=== PATIENT | male | born 1965 | race Caucasian/White ===

== ENCOUNTER 2020-11-19 05:40 | Day surgery (SDC) | payer OTHER ==
[~2020-11-19] VITALS: Ht 180.3 cm; Wt 109.1 kg
[~2020-11-19 05:40] MED LIST: CYCLOBENZAPRINE10 MG PO; FLOMAX0.4 MG PO; LIDO KING1 EACH; LIPITOR10 MG PO; METOPROLOL SUCC50 MG PO; MINIPRESS2 MG PO; NUPERCAINAL56.7 GM PR; PRINIVIL20 MG PO; PROAIR HFA8.5 GM INH; PROMETHAZINE HC25 M1 PO; QVAR REDIHALE10.6 G1 INH; TERBINAFINE HC250 MG PO; VENLAFAXINE HC150 M1 PO
--- NOTE | 2020-11-19 08:39 | NUR ---
PT ALERT, ORIENTED AND SOMEWHAT ANXIOUS. PT C/O SEVERE PAIN IN LOWER BACK HE FEELS IS DUE TO LAYING ON HIS BACK. DR COREAS IN, CHECKED WITH PT AND STATED SHE WILL HAVE ALAINA ABEBE LOOK IN ON HIM. PT REQUESTED PRAYER, WILL FOLLOW
--- NOTE | 2020-11-19 09:39 | NUR ---
11/19/20 0939 Pretty Briceno 0849 PT ARRIVED IN PACU NON RESPONSIVE TO NOXIOUS STIMULI WITH OPA IN PLACE. CHIN LIFT HELD. 09 PT REACTIVE AND SWINGING AT STAFF. CALMED PT DOWN AND OPA REMOVED. 904 SITTING UP IN BED PER PT REQUEST. 918 C/O NAUSEA AND BILAT LLE PAIN IN BACK OF CALFS. PHENERGAN 12.5MG GIVEN SLOW IVP. 924 SPOKE WITH ANESTHESIA AND RECOMMENDED GIVING DILAUDID FOR PAIN. 928 DILAUDID 0.4MG GIVEN IVP. 938 SNORING.
--- NOTE | 2020-11-19 10:01 | NUR ---
PT IS BACK TO DS FROM PACU. HE IS REPORTING LOWER ABDOMEN/BLADDER PAIN. HE IS RESTLESS. HE RECIEVED DILAUDID PRIOR TO LEAVING PACU. WHEN NOT STIMULATED HE DOES FALL ASLEEP AND START SNORING. AND SON ARE NOTIFIED THAT THEY CAN COME INTO THE ROOM. CALL LIGHT WITHIN REACH. NO ADDITIONAL NEEDS AT THIS TIME.
--- NOTE | 2020-11-19 11:02 | NUR ---
PT IS REPORTING 9/10 PAIN IN HIS URETHRA. HE IS EDUCATED THAT DISCOMFORT IN THAT AREA IS GOING TO BE NORMAL. HE HASN'T TAKEN ANY SIPS OF WATER. STILL FALLS ASLEEP WITHOUT STIMULATION. CALL LIGHT WITHIN REACH. NO ADDITIONAL NEEDS.
--- NOTE | 2020-11-19 11:52 | NUR ---
PT'S IRRIGATION BAGS CHANED AND NOVOA EMPTIED. SEE I&O FOR NUMBERS. PT IS ASSISTED UP OOB WITH STANDBY ASSIST TO THE BATHROOM. HE IS ABLE TO AMBULATE HIMSELF BACK TO BED. HE IS REPORTING AN IMPROVEMENT IN HIS PAIN.
--- NOTE | 2020-11-19 13:45 | NUR ---
RECEIVED PT FROM DAY SURGERY. PT AWAKE AND TALKATIVE. DENIES NEEDS. NOVOA DRAINING LIGHT PINK. CALL LIGHT IN REACH. ORDERED DINNER.
--- NOTE | 2020-11-19 14:01 | OR ---
[facility] [address], [place] [address] Signed DATE OF OPERATION: 11/19/2020 SURGEON: Yaquelin Coreas MD PREOPERATIVE DIAGNOSES: Benign prostatic hyperplasia with lower urinary tract symptoms. POSTOPERATIVE DIAGNOSES: Benign prostatic hyperplasia with lower urinary tract symptoms. NAMES OF PROCEDURES: 1. Urethral dilation using [place] sounds from 16-Beninese to 28-Beninese. 2. Transurethral resection of the prostate. ANESTHESIA: General. ESTIMATED BLOOD LOSS: 15 mL. COMPLICATIONS: None. SPECIMENS: Prostate chips sent to pathology for evaluation. DRAINS: A 22-Beninese three-way Heck catheter, connected to continuous bladder irrigation. INDICATIONS FOR PROCEDURE: Mr. Horvath is a very pleasant 55-year-old gentleman, who is well known to me. I have been following along with him in managing his lower urinary tract symptoms for a while now. He has been taking Flomax twice daily for over a year. He has deferred use of finasteride due to concerns of breast tenderness and diminished libido. After undergoing diagnostic cystoscopy, which revealed moderate to severe lateral lobe hypertrophy, the patient agreed to undergo elective transurethral resection of the prostate. FINDINGS: 1. On cystoscopy, there was no evidence of any suspicious masses, lesions, or stones. Electronically Signed By: YAQUELIN COREAS MD 11/19/20 1401 PATIENT NAME: SALONI HORVATH SR OPERATIVE REPORT DATE OF : 65 REPORT #: [id number] PHYSICIAN: YAQUELIN COREAS MD PCP: NO PRIMARY CARE PHYSICIAN REPORT IS CONFIDENTIAL AND NOT TO BE RELEASED WITHOUT AUTHORIZATION [facility] [address] [place], [place] [address] Signed Bilateral ureteral orifices are in their normal anatomic location and effluxing clear urine. There is approximately 2 cm from the bladder neck to the ureteral orifices. 2. Ureteroscopy revealed moderate lateral lobe hypertrophy with a distance of approximately 1.5 cm from bladder neck to verumontanum. The bladder neck is elevated, however, there is no evidence of any median lobe. 3. Both the left and right lateral lobes of the prostate were resected transurethrally using a 24-Beninese bipolar loop. The resection was performed without any difficulty. The resection was performed to the level of the verumontanum and no further to prevent any potential risk of iatrogenic incontinence due to damage to the external sphincter. 4. At the end of the procedure, a 22-Beninese three-way Heck catheter was inserted into the patient's bladder and connected to continuous bladder irrigation. DESCRIPTION OF PROCEDURE: After informed consent was obtained, the patient was taken back to the operating room. He was transferred from the [facility] to the operating room table, where general anesthesia was induced. He was placed in the dorsal lithotomy position and his genitalia prepped and draped in the standard sterile fashion. The patient was dilated using Nirali sounds from 16-Beninese to 28-Beninese without difficulty. 60 mL of Surgilube was then instilled into his urethra using a catheter tip syringe. A 26-Beninese sheath was then inserted into the patient's urethra using a visual obturator. The visual obturator was then removed and replaced with the resectoscope. After a thorough diagnostic cystoscopy was performed, resection of the lateral lobes of the prostate was initiated. The left lateral lobe was resected first along with the bladder neck both anteriorly and posteriorly. Finally, the right lateral lobe of the prostate was resected using the bipolar loop. Approximately 20 g of tissue was resected in total. After the resection, the bipolar loop was also used to achieve and maintain hemostasis. During the resection, the patient's bladder was irrigated using a Brunilda syringe to obtain all of the prostate chips from the patient's bladder. This was done a few times toward the end of the procedure. I removed the bipolar loop and exchanged for the bipolar button to achieve better hemostasis. Once I was satisfied then an adequate channel had been created and hemostasis had been achieved, the patient's bladder was irrigated once more. I then removed the resectoscope, leaving the 26-Beninese sheath behind. A 0.035 Sensor wire was inserted through the sheath and into the patient's bladder. The sheath was then removed fully intact. Over the wire, I passed a 22-Beninese three-way Heck catheter into the patient's bladder without difficulty. The wire was then removed and the Heck balloon was filled with 30 mL of sterile water. The patient's bladder was then manually irrigated multiple times to confirm placement. The catheter was then connected to continuous bladder irrigation. The procedure was then terminated. The patient tolerated the procedure well without any complication. He will now be transferred to the postanesthesia care unit in stable condition. DISPOSITION: Electronically Signed By: YAQUELIN COREAS MD 11/19/20 1401 PATIENT NAME: SALONI HORVATH SR OPERATIVE REPORT DATE OF : 65 REPORT #: [id number] PHYSICIAN: YAQUELIN COREAS MD PCP: NO PRIMARY CARE PHYSICIAN REPORT IS CONFIDENTIAL AND NOT TO BE RELEASED WITHOUT AUTHORIZATION [address] [address] Signed I discussed the details of today's procedure with the patient's and answered all of his questions. He will stay the night on continuous bladder irrigation. Nursing staff will wean the CBI to off, keeping the urine clear to light pink in color. His diet will be advanced as tolerated and he will be given pain control and antiemetics. He will be discharged to home tomorrow morning after he receives an additional dose of IV antibiotic. He will be discharged to home with his Heck catheter gravity drainage. He has been scheduled to return to clinic this , the 22 of November at 2:15 to undergo a voiding trial. MD BALDOMERO Correa/CONSTANTINL /[id number] Copies: ~ Electronically Signed By: YAQUELIN COREAS MD 11/19/20 1401 PATIENT NAME: SALONI HORVATH SR OPERATIVE REPORT DATE OF : 65 REPORT #: [id number] PHYSICIAN: YAQUELIN COREAS MD PCP: NO PRIMARY CARE PHYSICIAN REPORT IS CONFIDENTIAL AND NOT TO BE RELEASED WITHOUT AUTHORIZATION
[2020-11-19] MEDS ORDERED: TRAZODONE HCL50 MG PO (14:29)
[2020-11-19] MEDS ORDERED: VENLAFAXINE HC150 MG PO (15:30)
--- NOTE | 2020-11-19 15:31 | NUR ---
MED REC COMPLETE
--- NOTE | 2020-11-19 17:00 | NUR ---
PT RESTING WITH EYES CLOSED. TURNED CBI DOWN AGAIN. URINE HYDROGEOLOGIST PINK.
--- NOTE | 2020-11-19 18:58 | NUR ---
EMPTIED PT NOVOA. PT STATES DINNER WAS DECENT AND IS FEELING PRETTY GOOD. STOOD AT BEDSIDE FOR FIXING THE SHEETS.
--- NOTE | 2020-11-19 19:18 | NUR ---
CHARGE NURSE REPORT RECEIVED FROM DAY CHARGE. NO NEEDS AT THIS TIME.
--- NOTE | 2020-11-19 19:41 | NUR ---
BEDSIDE REPORT RECEIVED FROM MADISYN BLACKWELL. pt C/O LOWER BACK PAIN, 03/02 "ITS LIKE IT HURTS ON THE INSIDE, I CAN FEEL IT WHEN I MOVE". EDUCATION PROVIDED, DISCUSSED PLAN FOR PRN PAIN MEDICATION ADMINISTRATION. CBI WITH CLEAR DILUTE OUTPUT IN TUBING. MD IN ROOM. pt REQUESTING VALIUM. VERBAL ORDER REPEATED BACK FOR NEW ORDER, EMAR UPDATED. pt HAS CALL LIGHT IN REACH.
--- NOTE | 2020-11-19 21:30 | NUR ---
V/S AND I&O'S DONE. NOVOA CARE DONE. CHANGED GOWN. WARM BLANKET PROVIDED.
--- NOTE | 2020-11-19 21:41 | NUR ---
pt AWAKE RESTING IN BED, RATES PAIN 8/10 IN LOWER ABD AND BACK. PRN PAIN MEDICATION ADMINISTERED, VALIUM ADMINISTERED ORDERED. NOVOA CARE COMPLETE. NOVOA OUTPUT CLEAR IN TUBING, LIGHT PINK IN BAG. QUANITY SUFFICIENT URINE OUTPUT. CBI CLAMPED AT THIS TIME. IV FLUSHED WNL. IVF INFUSING ORDERED. PO FLUIDS PROVIDED. CALL LIGHT IN REACH.
--- NOTE | 2020-11-19 22:47 | NUR ---
PATIENT CALLED FOR WARM BLANKET. PROVIDED.
--- NOTE | 2020-11-19 23:24 | NUR ---
CALL LIGHT ANSWERED. pt REQUESTING TO HAVE NOVOA BAG EMPTIED. CBI NOTED TO BE CLAMPED AT THIS TIME, HOWEVER 2400 MLS IRRIGATION FLUID INFUSED THROUGH NOVOA. pt STATES HE DID NOT UNCLAMP BAG. IRRIGATION REMAINS CLAMPED. NOVOA BAG EMPTIED, DILUTE YELLOW URINE WITH SLIGHT PINK TINGE. CALL LIGHT IN REACH. LIGHTS OFF IN ROOM.
--- NOTE | 2020-11-20 02:26 | NUR ---
pt VSS. pt STATES "I GOT ABOUT TWO HOURS OF SLEEP AFTER THAT VALIUM". RATES PAIN 7.5/10 IN BLADDER. PRN PAIN MEDICATION ADMINISTERED. NOVOA EMPTIED, CBI CLAMPED, DRAINAGE YELLOW WITH SLIGHT PINK/ORANGE TINGE. ASSESSMENT COMPLETE. COOKIE, CRACKERS, WATER PROVIDED REQUESTED.
--- NOTE | 2020-11-20 04:11 | NUR ---
CALL LIGHT ANSWERED. pt QUESTIONING IF HE RECEIVED HIS FLEXERIL, C/O LEG SPASMS. SCDS REMOVED PER REQUEST. pt STATES "THAT FEELS A LOT BETTER". IVF INFUSING WNL. CALL LIGHT IN REACH.
--- NOTE | 2020-11-20 05:30 | NUR ---
CALL LIGHT ANSWERED. pt C/O PAIN AT NOVOA, "I MOVED AND IT HURT BAD". NOVOA DRAINING SLIGHTLY PINK TINGED YELLOW URINE, EMPTIED AT THIS TIME. VSS. LIGHTS OFF IN ROOM. CALL LIGHT WITHIN REACH.
--- NOTE | 2020-11-20 06:52 | NUR ---
PRN PAIN MEDICATION ADMINISTERED FOR 7/10 PAIN IN URETHRA. pt RESTING IN BED WATCHING TV. NO ADDITIONAL REQUESTS. IVF INFUSING WNL.
--- NOTE | 2020-11-20 07:29 | NUR ---
Patient in bed resting, alert and oriented x4. CBI clamped at this time. Patient reports good po intake. Bladder pain is tolerable at this time. Personal supplies and call light within reach.
--- NOTE | 2020-11-20 07:40 | NUR ---
Dr. Fields to the floor. Patient ok to discharge home this morning per provider.
[2020-11-20] MEDS ORDERED: CIPRO500 MG PO (08:18)
[2020-11-20] MEDS ORDERED: OXYCODONE HCL10 MG PO (08:19)
[2020-11-20] MEDS ORDERED: PROMETHAZINE HC25 M1 PO (08:20)
--- NOTE | 2020-11-22 11:49 | PATH ---
[facility] [address] [place], [place] [address] Signed SPECIMEN(S): A PROSTATE CHIPS (TUR) SPECIMEN SOURCE: A. PROSTATE CHIPS (TUR) CLINICAL HISTORY: Pre: BPH, urgency. Post: TURP. FINAL PATHOLOGIC DIAGNOSIS: Prostate chips, transurethral resection: - Benign prostatic hyperplasia. NAL:cml:C2NR MICROSCOPIC EXAMINATION: Histologic sections of all submitted blocks are examined by light microscopy. A TRICAP multiplex stain (with appropriately staining controls) on a sales donor recruitment representative section confirms the absence of adenocarcinoma, demonstrating no focus of glands with loss of basal cells with p63 and HMWCK and epithelial P504S positivity. These findings, together with the gross examination, support the pathologic diagnosis. GROSS DESCRIPTION: The specimen, labeled "KO," and designated on the requisition "prostate chips," is received in formalin and consists of multiple irregular pieces of pink-quintanilla to hemorrhagic soft to rubbery tissue (7 g, 5.0 x 3.0 x 1.5 cm in aggregate). The specimen is submitted entirely in cassettes (A1-A5). AC (under the direct supervision of a pathologist) The Gross Description was prepared using a voice recognition system. The report was reviewed for accuracy; however, sound-alike word errors, addition and/or deletions may occur. If there is any question about this report, please contact Client Services. ADDITIONAL NOTES: Immunohistochemical and/or in situ hybridization studies were performed on this case with the appropriate positive controls that react as expected. This test was developed and its performance characteristics determined by [facility]. It has not been cleared or approved by the U.S. Food and Drug Administration. The FDA has determined that such clearance or approval is not PATIENT NAME: SALONI MCKEON PATHOLOGY DATE OF : 65 REPORT #: [id number] PHYSICIAN: FRANKO VICTORIA PCP: NO PRIMARY CARE PHYSICIAN REPORT IS CONFIDENTIAL AND NOT TO BE RELEASED WITHOUT AUTHORIZATION [facility] [address] [id number] Signed necessary. This test is used for clinical purposes. It should not be regarded as investigational or for research. [facility] is certified under the Clinical Laboratory Improvement Amendments of 1988 (CLIA) as qualified to perform high complexity clinical laboratory testing. This assay has not been validated for specimens that have been decalcified. PERFORMING LABORATORY: The technical component was performed by [facility] [address] (Regulatory Law Specialist: Maira Donald MD; CLIA# [id number]). [facility] [address] [address] (CLIA# [id number]). Diagnostician: Laverne Chaidez MD Pathologist Electronically Signed 11/22/2020 Copies: ~ PATIENT NAME: SALONI MCKEON PATHOLOGY DATE OF : 65 REPORT #: [id number] PHYSICIAN: FRANKO VICTORIA PCP: NO PRIMARY CARE PHYSICIAN REPORT IS CONFIDENTIAL AND NOT TO BE RELEASED WITHOUT AUTHORIZATION
== END 2020-11-20 09:00 | disposition home or self-care (01) ==
LOC: DS 05:40 → OPS 05:40 → DS 06:45 → OPS 06:45 → MS 13:44 → OPS 11-20 09:00
PROVIDERS: ATTEND Urology
PROC: 0T7D8ZZ Dilation of Urethra, Via Natural or Artificial Opening Endoscopic (ICD-10-PCS; 2020-11-19)
PROC: 0VT08ZZ Resection of Prostate, Via Natural or Artificial Opening Endoscopic (ICD-10-PCS; principal; 2020-11-19 06:45)
DX: N40.1 Benign prostatic hyperplasia with lower urinary tract symptoms (principal); N39.41 Urge incontinence; N13.8 Other obstructive and reflux uropathy; I10 Essential (primary) hypertension; Z95.5 Presence of coronary angioplasty implant and graft
CPT/HCPCS: 00914; 88305; 88344; C1769; J0330; J0690; J0696; J1100; J1170; J1885; J2250; J2405; J2550; J2704; J2765; J3010; J7030; J7121

== ENCOUNTER 2024-08-11 18:22 | Emergency (ER) | payer OTHER ==
[~2024-08-11] VITALS: Ht 180.3 cm; Wt 92.1 kg
[~2024-08-11 18:22] MED LIST changes: +CIPRO500 MG PO; +OXYCODONE HCL10 MG PO; +TRAZODONE HCL50 MG PO; +VENLAFAXINE HC150 MG PO
--- OUTSIDE RECORDS SUMMARY | 2024-08-11 18:29 | XMS ---
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 PHONE: [phone] [facility] Pediatrics Current CARE SYSTEM \F\ [facility] PHONE: [phone] Care Guidelines exist for the following facilities: [facility] ( 01/10/2019 ) [place] VISIT COUNT (12 MO.) 30 [facility] 1 DONAL [place] TOTAL 31 NOTE: Visits indicate total known visits. ED/UCC VISIT TRACKING (12 MO.) 08/11/2024 18:23 [facility] [place] TYPE: Emergency COMPLAINT: - SWEATING 08/04/2024 20:44 [facility] [place] [facility] [place] TYPE: Emergency DIAGNOSES: - Adverse effect of cannabis, initial encounter - sweating, cramps 08/03/2024 19:36 [facility] [place] [facility] [place] TYPE: Emergency DIAGNOSES: - Nausea - Right testicular pain - GENERAL 07[facility]2024 08[facility] DIAGNOSES: - Hydrocele, unspecified - Right testicular pain - cramps, sweating 07/18/2024 11:05 [facility] OR TYPE: Emergency DIAGNOSES: - Cyclical vomiting syndrome unrelated to migraine - LEG CRAMPS SWEATING 07/14/2024 18:31 [facility] OR TYPE: Emergency DIAGNOSES: - Anxiety disorder, unspecified - Cannabis abuse, uncomplicated - Cannabis use, unspecified, uncomplicated - Cramp and spasm - Generalized hyperhidrosis - Nausea with vomiting, unspecified - LEG CRAMPS SWEATS - Shaking 07/13/2024 07:47 [facility] OR TYPE: Emergency DIAGNOSES: - Cannabis abuse, uncomplicated - Cramp and spasm - Generalized hyperhidrosis - sweating 07/12/2024 17:48 [facility] OR TYPE: Emergency DIAGNOSES: - Cramp and spasm - Generalized hyperhidrosis - Palpitations - LEG CRAMPS 07/06/2024 13:37 [facility] [place] TYPE: Emergency DIAGNOSES: - Generalized hyperhidrosis - HIGH BLOOD PRESSURE 07/05/2024 13:40 [facility] [place] TYPE: Emergency DIAGNOSES: - Other specified abnormal findings of blood chemistry - Tachycardia, unspecified - Back pain 07/04/2024 16:34 [facility] [place] TYPE: Emergency DIAGNOSES: - Cannabis use, unspecified, uncomplicated - Nausea with vomiting, unspecified - GENERAL 06/24/2024 14:04 [facility] [place] TYPE: Emergency DIAGNOSES: - Tachycardia, unspecified - Diaphoresis 06/24/2024 07:37 [facility] OR TYPE: Emergency DIAGNOSES: - Generalized hyperhidrosis - Tachycardia, unspecified - TACHYCARDIA 06/20/2024 15:19 [facility] OR TYPE: Emergency DIAGNOSES: - Generalized hyperhidrosis - Tachycardia, unspecified - TACHYCARDIA 06/01/2024 10:25 [facility] OR TYPE: Emergency COMPLAINT: - LEG AND BACK CRAMPS SWEATSO DIAGNOSES: - LEG AND BACK CRAMPS SWEATSO 05/31/2024 07:32 [facility] OR TYPE: Emergency DIAGNOSES: - Cramp and spasm - Generalized hyperhidrosis - SWEATING BODY CRAMPS 05/30/2024 11:35 [facility] OR TYPE: Emergency DIAGNOSES: - Cramp and spasm - Generalized hyperhidrosis - Nausea - VOMITING 05/29/2024 13:38 [facility] OR TYPE: Emergency DIAGNOSES: - Cannabis use, unspecified, uncomplicated - Nausea with vomiting, unspecified - BACK PAIN SWEATING HIGH BP 05/28/2024 19:07 [facility] OR TYPE: Emergency COMPLAINT: - Cramping DIAGNOSES: - Cramping 05/12/2024 12:28 [facility] OR TYPE: Emergency DIAGNOSES: - Dehydration - Generalized hyperhidrosis - COLD SWEATS DIARRHEA BACK PAIN DEHYDRATED Plus 11 More Visits INPATIENT VISIT TRACKING (12 MO.) 06/20/2024 15:19 [employer] [place] TYPE: Medical Surgical DIAGNOSES: - Generalized hyperhidrosis - Tachycardia, unspecified 06/01/2024 10:25 [facility] DIAGNOSES: - Generalized hyperhidrosis - Resistant hypertension [email or web address]
[2024-08-11] MEDS ORDERED: LABETALOL HCL 20 MG/4 ML VIAL IV ONE (20:15)
[2024-08-11] MEDS ORDERED: LACTATED RINGER'S 1,000 ML IV ONE ×2 (20:15→21:30)
[2024-08-11 20:27] LABS: BASOPHILS 0.9 % (0-2); EOSINOPHILS 1.2 % (0-6); HEMATOCRIT 50.1 % (35.0-50.0); HEMOGLOBIN 16.8 g/dL (12.0-18.0); LYMPHOCYTES 18.8 % (24-44); MCH 31.9 (27-36); MCHC 33.5 g/dl (30-36); MCV 95.3 fl (81-99); MONOCYTES 6.1 % (0-12); PLATELET COUNT 316 K/uL (140-440); RBC 5.26 M/ul (4.3-5.7); RDW 14.1 (10.5-15.0)
[2024-08-11] MEDS ORDERED: MAG-OXIDE400 MG PO (20:33)
[2024-08-11] MEDS ORDERED: FLUOXETINE HCL20 MG PO (20:33)
[2024-08-11] MEDS ORDERED: OMEPRAZOLE20 MG PO (20:34)
[2024-08-11] MEDS ORDERED: METHOCARBAMOL500 MG PO ×2 (20:34→22:04)
[2024-08-11] MEDS ORDERED: PRAZOSIN HCL2 MG PO (20:34)
[2024-08-11 20:53] LABS: ALBUMIN 4.1 g/dL (3.4-5.0); ALBUMIN/GLOBULIN RATIO 1.03 (1.1-2.4); ANION GAP 15.1 (7-21); BILIRUBIN, TOTAL 0.8 ng/dL (0.2-1.0); BUN/CREATININE RATIO 11.7 (6.0-28.6); CALCIUM 9.7 mg/dL (8.5-10.1); CREATININE, SERUM 0.94 mg/dL (0.70-1.30); MAGNESIUM 2.1 mg/dL (1.8-2.4); POTASSIUM 4.1 mmol/L (3.5-5.1); PROTEIN, TOTAL 8.1 g/dL (6.4-8.2); TSH, 3RD GENERATION 1.654 uIU/mL (0.358-3.740)
[2024-08-11] MEDS ORDERED: methocarbamoL 500 MG TABLET PO ONE (21:15)
[2024-08-11 21:36] LABS: BILIRUBIN, URINE NEGATIVE (negative); BLOOD/HGB, URINE NEGATIVE (Negative); KETONE, URINE NEGATIVE (Negative); LEUK ESTERASE, URINE NEGATIVE (negative); NITRITE, URINE NEGATIVE (negative)
[2024-08-11 21:50] LABS: AMPHETAMINES, URINE NEGATIVE (NEGATIVE); BARBITURATES, URINE NEGATIVE (NEGATIVE); BENZODIAZEPINE, URINE NEGATIVE (NEGATIVE); BUPRENORPHINE, URINE NEGATIVE (NEGATIVE); CANNABINOID, URINE POSITIVE (NEGATIVE); COCAINE, URINE NEGATIVE (NEGATIVE); ECSTASY, URINE NEGATIVE (NEGATIVE); FENTANYL, URINE NEGATIVE (NEGATIVE); METHADONE, URINE NEGATIVE (NEGATIVE); OPIATES, URINE NEGATIVE (NEGATIVE); OXYCODONE, URINE POSITIVE (NEGATIVE); PHENCYCLIDINE, URINE NEGATIVE (NEGATIVE)
[2024-08-11] MEDS ORDERED: LABETALOL HCL100 MG PO (22:04)
[2024-08-11 22:15] VITALS: BP 141/105
--- NOTE | 2024-08-13 18:10 | EKG ---
[facility] [address] [facility] [place] [address] Signed Sinus tachycardia Left ventricular hypertrophy with repolarization abnormality ( R in aVL , Choteau product ) Abnormal ECG When compared with ECG of 15-NOV-2020 13:21, Vent. rate has increased BY 54 BPM T wave amplitude has increased in Anterior leads Confirmed by Bryce Zheng MD ([id number]) on 08/13/2024 6:10:06 PM Electronically Signed By: BRYCE ZHENG MD 08/13/24 1810 PATIENT NAME: SALONI MCKEON KARON Electrocardiogram DATE OF : 65 PHYSICIAN: BRYCE ZHENG MD REPORT #: [id number] REPORT IS CONFIDENTIAL AND NOT TO BE RELEASED WITHOUT AUTHORIZATION
== END 2024-08-11 22:15 | disposition home or self-care (01) ==
LOC: ED 18:22
PROVIDERS: Internal Medicine
DX: R00.0 Tachycardia, unspecified (principal); E88.89 Other specified metabolic disorders; I10 Essential (primary) hypertension; F17.200 Nicotine dependence, unspecified, uncomplicated; Z91.030 Bee allergy status; Z88.5 Allergy status to narcotic agent; Z88.8 Allergy status to other drugs, medicaments and biological substances; Z79.899 Other long term (current) drug therapy
CPT/HCPCS: 36415; 80053; 80307; 81003; 82553; 83735; 83880; 84436; 84439; 84443; 84484; 85025; 96374; 99285-25; J7121